=== PATIENT | male | born 1995 | race Caucasian/White ===

== ENCOUNTER 2017-12-08 18:39 | Emergency (ER) | payer SELFPAY ==
[~2017-12-08] VITALS: Ht 170.2 cm; Wt 72.6 kg
[2017-12-08 18:42] VITALS: BP 92/75
[2017-12-08] MEDS ORDERED: ALBU0.0912 INH (18:46)
--- NOTE | 2017-12-08 18:53 | NUR ---
PATIENT IS A 21 [facility]O [facility]ALE [facility] [employer] FOR PRE BOOK EXAM. HAS HX OF ASTHMA, LUNGS ARE CLEAR, NO WHEEZING OR RHONCHI. TO CHAIR E FOR MD SEGOVIA.
--- NOTE | 2017-12-08 19:00 | NUR ---
dr nadersen evaluating pt
[2017-12-08 19:21] VITALS: BP 102/76
--- NOTE | 2017-12-08 19:21 | NUR ---
Patient discharged with v/s stable per dr andersen. Written and verbal after care instructions given and explained by dr andersen. Patient verbalized understanding. Police with in custody. All questions addressed prior to discharge. Advised to follow up with PMD.
== END 2017-12-08 19:21 ==
LOC: MED 18:39
DX: Z02.89 Encounter for other administrative examinations (principal); J45.909 Unspecified asthma, uncomplicated; Z79.899 Other long term (current) drug therapy
CPT/HCPCS: 99283